=== PATIENT | female | born 1990 | race Caucasian/White ===

== ENCOUNTER → 2017-07-17 | Outpatient (CLI) | payer MEDICAID | LOC: CIMAGING 12:09 | PROVIDERS: ATTEND Family Medicine | DX: M25.562 Pain in left knee (principal) | CPT/HCPCS: 73560-PO ==

== ENCOUNTER → 2017-07-22 | Outpatient (CLI) | payer MEDICAID | LOC: FIMAGING 15:10 | PROVIDERS: ATTEND Family Medicine | DX: M25.562 Pain in left knee (principal) ==